=== PATIENT | male | born 1995 | race Native Hawaiian/Other Pacific Islander ===

== ENCOUNTER 2016-12-14 02:49 | Observation (INO) | payer SELFPAY ==
[2016-12-14 02:56] VITALS: O2SAT 96
[2016-12-14] MEDS ORDERED: Sodium Chloride 0.9% 1,000 ML IV STA (03:02)
--- NOTE | 2016-12-14 03:10 | ED PDOC ---
HPI: Psych/Substance Abuse Time Seen by Provider: 12/14/16 03:04 Chief Complaint (Nursing): Alcohol Ingestion Chief Complaint (Provider): alcohol ingestion History Per: Patient (21 y/o male here for alcohol intoxication and noted vomiting. Patient nods/shakes head in response to questions. No verbal responses given.) Past Medical History Reviewed: Historical Data, Nursing Documentation, Vital Signs Vital Signs: Last Vital Signs Temp 98 F 12/14/16 02:55 Pulse 64 12/14/16 02:55 Resp 18 12/14/16 02:55 BP 100/70 12/14/16 02:55 Pulse Ox 96 12/14/16 02:55 - Family History Family History: States: No Known Family Hx - Allergies Allergies/Adverse Reactions: Allergies Allergy/AdvReac Type Severity Reaction Status Date / Time No Known Allergies Allergy Verified 12/14/16 03:02 Review of Systems ROS Statement: Except As Marked, All Systems Reviewed And Found Negative Physical Exam - Reviewed Nursing Documentation Reviewed: Yes Vital Signs Reviewed: Yes - Physical Exam Appears: Positive for: Well, Non-toxic, No Acute Distress Head Exam: Positive for: ATRAUMATIC, NORMAL INSPECTION, NORMOCEPHALIC Skin: Positive for: Normal Color, Warm, DRY Eye Exam: Positive for: EOMI, Normal appearance, PERRL ENT: Positive for: Normal ENT Inspection Neck: Positive for: Normal, Painless ROM Cardiovascular/Chest: Positive for: Regular Rate, Rhythm Respiratory: Positive for: CNT, Normal Breath Sounds Gastrointestinal/Abdominal: Positive for: Normal Exam, Bowel Sounds, Soft Back: Positive for: Normal Inspection Extremity: Positive for: Normal ROM Neurologic/Psych: Positive for: Alert, Oriented - ECG O2 Sat by Pulse Oximetry: 96 ED OBSERVATION Date of observation admission: 12/14/16 Time of observation admission: 04:15 - Observation admission statement Patient is being placed in observation because:: alcohol intoxication - Goals of Observation Goals of observation are:: Observe until clinical sobreity Disposition - Clinical Impression Clinical Impression: Alcohol ingestion - Patient ED Disposition Is Patient to be Admitted: Transfer of Care - Disposition Disposition: Transfer of Care Disposition Time: 06:00 Condition: FAIR Patient Signed Over To: Jus Le Handoff Comments: re-evaluation for sobriety
--- NOTE | 2016-12-14 05:59 | ED PDOC ---
- ECG O2 Sat by Pulse Oximetry: 96 (RA) Pulse Ox Interpretation: Normal Medical Decision Making Medical Decision Making: Time: 0600 Initial impression: Alcohol Intoxication Initial plan: Patient signed out to me by DEEPAK Viera. Pending Clinical Sobriety Scribe Attestation: Documented by Farzaneh Perez, acting as a scribe for Jus Le MD MD Scribe Attestation: All medical record entries made by the Scribe were at my direction and personally dictated by me. I have reviewed the chart and agree that the record accurately reflects my personal performance of the history, physical exam, medical decision making, and the department course for this patient. I have also personally directed, reviewed, and agree with the discharge instructions and disposition. Disposition Doctor Will See Patient In The: Office Counseled Patient/Family Regarding: Studies Performed, Diagnosis, Need For Followup - Clinical Impression Clinical Impression: Alcohol intoxication - POA Present On Arrival: None - Disposition Disposition: Transfer of Care Disposition Time: 07:00 Condition: FAIR Patient Signed Over To: Christina Jovel
[2016-12-14 06:36] VITALS: BP 113/49; PULSE 77; RESP 17; TEMP 98.4
--- NOTE | 2016-12-14 07:22 | ED PDOC ---
- ECG O2 Sat by Pulse Oximetry: 96 (RA) Pulse Ox Interpretation: Normal Medical Decision Making Medical Decision Makin:00 Patient was signed out to me by Jus Le MD pending clinical sobriety and final disposition. 12:00 Patient is awake, alert, oriented x 3 with a steady gait. Patient is stable for discharge. Scribe Attestation: Documented by Christina Webster, acting as a scribe for Christina Jovel MD. Provider Scribe Attestation: All medical record entries made by the Scribe were at my direction and personally dictated by me. I have reviewed the chart and agree that the record accurately reflects my personal performance of the history, physical exam, medical decision making, and the department course for this patient. I have also personally directed, reviewed, and agree with the discharge instructions and disposition. Disposition - Clinical Impression Clinical Impression: Alcohol ingestion - Disposition Condition: FAIR
== END 2016-12-14 12:03 | disposition home or self-care (01) ==
LOC: H.ER 02:49 → H.EROBSV 04:15
PROVIDERS: ADMIT Emergency Medicine; ATTEND Emergency Medicine
DX: F10.129 Alcohol abuse with intoxication, unspecified (principal); Y90.7 Blood alcohol level of 200-239 mg/100 ml
CPT/HCPCS: 82948; 96374; 99282; G0378; G0480; J2405; J7040